=== PATIENT | female | born 2000 | race Caucasian/White ===

== ENCOUNTER 2021-03-27 04:09 | Inpatient (IN) ==
[2021-03-27] MEDS ORDERED: Metoclopramide 10 MG/2 ML VIAL IVP PRN (04:20)
[2021-03-27] MEDS ORDERED: Lidocaine 1% 20 ML MDV INFILT PRN (04:20)
[2021-03-27] MEDS ORDERED: *HR* Nalbuphine 10 MG/ML AMPUL IV PRN (04:20)
[2021-03-27] MEDS ORDERED: Naloxone 0.4 MG/ML INJ IVP PRN (04:20)
[2021-03-27] MEDS ORDERED: Famotidine 20 MG/2 ML VIAL IVP PRN (04:20)
[2021-03-27] MEDS ORDERED: Ondansetron 4 MG/2 ML VIAL IVP PRN (04:20)
[2021-03-27] MEDS: Ringers Solution, Lactated 1,000 ML IVC SCH ×2 (04:53→08:55)
[2021-03-27 04:58] LABS: Basophils % 0.2 %; Eosinophils % 0.2 %; Hematocrit 31.2 % (35.3-44.9); Hemoglobin 9.8 g/dL (11.5-15.4); Immature Granulocytes % 0.4 % (0-4); Lymphocytes # 1.9 K/mcL (0.6-4.6); Mean Corpuscular HGB Conc 31.4 g/dL (31.6-35.5); Mean Corpuscular Hemoglobin 24.1 pg (28.0-33.3); Mean Corpuscular Volume 76.7 fL (83.0-100.0); Mean Platelet Volume 10.3 fL (9.4-12.4); Monocytes # 0.9 K/mcL (0.0-1.3); Monocytes % 5.6 %; Neutrophils # 13.1 K/mcL (1.6-8.9); Platelet Count 401 K/mcL (140-400); Red Blood Count 4.07 M/mcL (3.82-4.97); Red Cell Distribution Width 13.3 % (11.5-14.5); Segmented Neutrophils % 81.6 %
[2021-03-27] MEDS ORDERED: Oxytocin 20 units/ LR 1000 mL 20 UNIT/1,000 ML BAG IVC SCH ×2 (05:00→13:40)
[2021-03-27 05:08] LABS: Amphetamine Screen,Urine Negative ng/mL (Cutoff=1000); Barbiturate Screen,Urine Negative ng/mL (Cutoff=200); Benzodiazepines Screen,Urine Negative ng/mL (Cutoff=200); Cannabinoid Screen,Urine Positive ng/mL (Cutoff = 50); Cocaine Screen,Urine Negative ng/mL (Cutoff= 300); Opiate Screen,Urine Negative ng/mL (Cutoff=300); Phencyclidine Screen,Urine Negative ng/mL (Cutoff=25)
[2021-03-27 05:30] LABS: Influenza A PCR Negative (Negative); Influenza B PCR Negative (Negative); Resp. Syncytial Virus PCR Negative (Negative)
[2021-03-27 05:31] LABS: SARS-CoV-2 by PCR (In House) Negative (Negative)
[2021-03-27] MEDS ORDERED: EPHEDrine 50 MG/ML VIAL IVP PRN (07:42)
[2021-03-27] MEDS ORDERED: *HR* FentaNYL (PF) 100 MCG/2 ML VIAL EP ONE (07:42)
[2021-03-27] MEDS ORDERED: Ropivacaine/PF 0.2% 20 ML VIAL EP ONE (07:42)
[2021-03-27] MEDS ORDERED: Epidural Premix (fent/bupiv) 110 ML EP SCH (07:45)
[2021-03-27] MEDS ORDERED: Acetaminophen 325 MG TABLET PO SCH (13:40)
[2021-03-27] MEDS ORDERED: Ondansetron ODT 4 MG TAB.RAPDIS SL PRN (13:40)
[2021-03-27] MEDS ORDERED: Benzocaine/Menthol 56 GM AEROSOL SPRAY TP PRN (13:40)
[2021-03-27] MEDS ORDERED: Lanolin 7 G OINT...G. TP PRN (13:40)
[2021-03-27] MEDS: Acetaminophen 325 MG TABLET PO SCH ×2 (15:31→21:20)
[2021-03-27] MEDS: Ibuprofen 600 MG TABLET PO SCH (21:20)
[2021-03-28] MEDS: Ibuprofen 600 MG TABLET PO SCH ×2 (04:34→04:35)
[2021-03-28] MEDS: Acetaminophen 325 MG TABLET PO SCH (04:34)
[2021-03-28 04:43] VITALS: O2SAT 99
[2021-03-28] MEDS ORDERED: Prenatal Vit/FA 1 EACH TABLET PO SCH (09:00)
[2021-03-28 09:13] LABS: Basophils % 0.3 %; Eosinophils # 0.2 K/mcL (0.0-0.6); Eosinophils % 1.1 %; Hematocrit 29.6 % (35.3-44.9); Hemoglobin 9.1 g/dL (11.5-15.4); Immature Granulocytes % 0.7 % (0-4); Lymphocytes # 2.2 K/mcL (0.6-4.6); Lymphocytes % 16.8 %; Mean Corpuscular HGB Conc 30.7 g/dL (31.6-35.5); Mean Corpuscular Hemoglobin 24.2 pg (28.0-33.3); Mean Corpuscular Volume 78.7 fL (83.0-100.0); Mean Platelet Volume 10.1 fL (9.4-12.4); Monocytes # 0.9 K/mcL (0.0-1.3); Monocytes % 6.4 %; Neutrophils # 9.9 K/mcL (1.6-8.9); Platelet Count 339 K/mcL (140-400); Red Blood Count 3.76 M/mcL (3.82-4.97); Red Cell Distribution Width 13.6 % (11.5-14.5); Segmented Neutrophils % 74.7 %; White Blood Count 13.3 K/mcL (4.3-11.1)
[2021-03-28 13:17] VITALS: BP 128/87; PULSE 64; TEMP 98.1
== END 2021-03-28 15:15 | disposition home or self-care (01) | DRG 560 ==
LOC: 1NENULAB 04:09 → 1NENUOBS 13:31
PROVIDERS: ADMIT Obstetrics & Gynecology; ATTEND Obstetrics & Gynecology